=== PATIENT | male | born 1980 | race Caucasian/White ===

== ENCOUNTER 2021-12-03 11:56 | Emergency (ER) | payer OTHER ==
[2021-12-03 12:02] VITALS: BP 136/70; PULSE 85; TEMP 98.2; BMI 30.2
[2021-12-03] MEDS ORDERED: FLUORESCEIN NA 1 EA STRIP OS ONE (12:57)
[2021-12-03] MEDS ORDERED: TETRACAINE 0.5% HCL 0.6ML DROPPER.BOTTLE OS ONE (13:00)
[2021-12-03] MEDS ORDERED: TETRACAINE 0.5% OPHTH SOLN 2 ML BOTTLE ONE (13:04)
[2021-12-03] MEDS ORDERED: FLUORESCEIN NA 1 EA STRIP ONE (13:04)
[2021-12-03] MEDS ORDERED: valACYclovir HCL 1000 MG TABLET PO ONE (13:13)
[2021-12-03] MEDS ORDERED: predniSONE 20 MG TABLET (UD) PO ONE (13:13)
[2021-12-03] MEDS ORDERED: predniSONE 20 MG TABLET (UD) ONE (13:19)
[2021-12-03] MEDS ORDERED: valACYclovir HCL 500 MG TABLET (FP) ONE (13:19)
== END 2021-12-03 13:57 | disposition home or self-care (01) ==
LOC: JER 11:56
DX: G51.0 Bell's palsy (principal); S05.02XA Injury of conjunctiva and corneal abrasion without foreign body, left eye, initial encounter; Y99.9 Unspecified external cause status
CPT/HCPCS: 36415; 86694; 86695; 86696; 99283-25

== ENCOUNTER 2024-04-18 11:26 | Emergency (ER) | payer OTHER ==
[2024-04-18 11:32] VITALS: TEMP 98.2; BMI 31.0
[2024-04-18] MEDS: SODIUM CHLORIDE 0.9% 500 ML INFUS.BAG IV ONE ×2 (11:55→12:42)
[2024-04-18] MEDS ORDERED: ADENOSINE 6 MG/2 ML VIAL IVPUSH ONE ×3 (12:01→12:58)
[2024-04-18 12:09] LABS: BASO % 0.5 % (0-2.0); EOS % 0.2 % (0-4.5); HEMATOCRIT 48.6 % (35.4-49); HEMOGLOBIN 16.7 GM/dL (11.7-16.9); MCH 30.2 pg (25.7-33.7); MCHC 34.3 g/dl (32.0-35.9); MEAN CELL VOLUME 88.1 fl (80-96); MEAN PLT VOLUME 7.4 fl (7.5-11.1); MONO % 5.7 % (3.8-10.2); NEUT % 66.6 % (42.8-82.8); PLATELET COUNT 378 10^3/uL (134-434); RBC 5.51 M/mm3 (4.00-5.60); WHITE BLOOD COUNT 8.5 K/mm3 (4.0-10.0)
[2024-04-18 12:28] LABS: POTASSIUM 4.1 mmol/L (3.5-5.1)
[2024-04-18 12:31] LABS: CALCIUM 9.4 mg/dL (8.5-10.1)
[2024-04-18 12:32] LABS: ALBUMIN 4.5 g/dl (3.4-5.0); BLOOD UREA NITROGEN 15.4 mg/dL (7-18)
[2024-04-18 12:37] LABS: BILIRUBIN,TOTAL 0.7 mg/dL (0.2-1); CREATININE 1.3 mg/dL (0.55-1.3); TOT PROT 7.8 g/dl (6.4-8.2)
[2024-04-18] MEDS: ADENOSINE 6 MG/2 ML VIAL IVPUSH ONE (13:06)
[2024-04-18 14:19] VITALS: BP 132/76; PULSE 85; RESP 16
== END 2024-04-18 14:21 | disposition home or self-care (01) ==
LOC: JER 11:26
PROC: 3E033GC Introduction of Other Therapeutic Substance into Peripheral Vein, Percutaneous Approach (ICD-10-PCS; principal; 2024-04-18)
DX: I47.1 Supraventricular tachycardia (principal)
CPT/HCPCS: 36415; 80053; 85025; 93005; 93010; 99291

== ENCOUNTER 2024-06-04 08:39 | Emergency (ER) | payer OTHER ==
[2024-06-04 08:46] VITALS: BP 134/85; PULSE 102; RESP 18; TEMP 97.7; BMI 31.0
[2024-06-04 09:54] LABS: BASO % 0.6 % (0-2.0); HEMATOCRIT 45.3 % (35.4-49); HEMOGLOBIN 15.7 GM/dL (11.7-16.9); LYMPH % 32.6 % (8-40); MCH 30.6 pg (25.7-33.7); MCHC 34.7 g/dl (32.0-35.9); MEAN CELL VOLUME 88.4 fl (80-96); MEAN PLT VOLUME 7.1 fl (7.5-11.1); MONO % 5.9 % (3.8-10.2); NEUT % 59.9 % (42.8-82.8); PLATELET COUNT 302 10^3/uL (134-434); RBC 5.12 M/mm3 (4.00-5.60); RDW 13.1 % (11.9-15.9); WHITE BLOOD COUNT 4.4 K/mm3 (4.0-10.0)
[2024-06-04 10:19] LABS: BLOOD UREA NITROGEN 12.4 mg/dL (7-18); CALCIUM 8.9 mg/dL (8.5-10.1); MAGNESIUM 2.2 mg/dL (1.8-2.4)
[2024-06-04 10:21] LABS: INR 0.91 (0.83-1.09); PROTHROMBIN TIME (PATIENT) 10.5 SEC (9.7-13.0)
[2024-06-04 10:22] LABS: CREATININE 1.3 mg/dL (0.55-1.3)
[2024-06-04 10:24] LABS: BILIRUBIN,TOTAL 0.7 mg/dL (0.2-1); TOT PROT 7.2 g/dl (6.4-8.2)
[2024-06-04 10:27] LABS: N-TERMINAL BNP 84.9 pg/ml (5-125)
== END 2024-06-04 11:24 | disposition home or self-care (01) ==
LOC: JER 08:39
DX: R07.89 Other chest pain (principal); R00.2 Palpitations
CPT/HCPCS: 36415; 80053; 83735; 83880; 84439; 84443; 84484; 85025; 85610; 85730; 86850; 86900; 86901; 93005; 93010; 99284-25